=== PATIENT | male | born 1940 | race Caucasian/White ===

== ENCOUNTER 2016-09-14 16:36 | Inpatient (IN) | payer MEDICARE ==
[2016-09-14] VITALS (10 sets, daily range): BP systolic 74–111; BP diastolic 50–105; BMI 28.4
[~2016-09-14] VITALS: Ht 170.2 cm; Wt 84.1 kg
[2016-09-15] VITALS (92 sets, daily range): BP systolic 68–136; BP diastolic 39–104; Ht 170.2 cm; Wt 84.1 kg
--- NOTE | 2016-09-15 00:39 | NUR ---
2145 PT ARRIVED ON UNIT VIA STRETCHER ACCOMPANIED BY MED FLIGHT TEAM. PT TRANSFERED SAFELY TO BED. REPORT RECIEVED FROM MED FLIGHT NURSE. LEVOPHED AT 2.5 ON ARRIVAL TO UNIT. BP HOLDING. STARTED NEW LEVOPHED DRIP AT 2.5 MCG/MIN INTO RIGHT A\C PIV. PT COMPLAINED OF PAIN UPON TOUCH OF BILATERAL LOWER EXTREMETIES. UPON INSPECTION, BOTH THE LEFT AND RIGHT LEGS EDEMETUS FROM BELOW KNEE TO TOES. BRIGHT RED IN COLOR. EXCORIATION AND SCABD ARE ALL OVER THE BILATERAL LOWER EXTREMETIES. SKIN TIGHT AND SHINEY ON LOWER LEGS. STATES PAIN 5/10 ON PAIN SCALE. ABDONEN DISTENDED AND FIRM, NON-TENDER, BOWEL SOUNDS ACTIVE X4 QUADRANTS. HANSEN ALREADY IN PLACE UPON ARRIVAL, APPROX 150ML CONCENTRATED YELLOW URINE IN BAG. LUNG SOUNDS CLEAR IN UPPER LOBES AND DIMINISHED IN LOWER LOBES. RIGHT RADIAL PULSE PALPABLE, LEFT RADIAL PULSE ABSENT, AVF IN LEFT UPPER ARM WITH BRUITT AND THRILL PRESENT, BRUISING CIRCUMFRENCING UPPER ARM FROM AXILLA TO BELOW ELBOW. LEFT HAND PRESENTS WITH WILBUR BANDAGE WRAPPED AROUND IT, PT STATES ITS TO PROTECT HIS HAND. TIPS OF LEFT FINGERS WITH MULTIPLE SORES AND SCABS. 3RD, 4TH, AND 5TH FINGERS WITH NO CAP REFIL RETURN - PALE IN COLOR AND COOL TO TOUCH. 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 STATES WEARS GLASSES BUT DOES NOT HAVE THEM WITH HIM. NO PERSONAL BELINGINGS WERE BROUGHT WITH HIM. PT IS ALERT AND ORIENTED X3, STATED YEAR WAS 2015. PULSES IN FEET DOPPLERED AND PRESENT. TURNED PT TO REMOVE OLD SHEETS FROM UNDERNEATH AND INSPECTED BOTTOM AND BACK WHICH WERE BOTH SMOOTH AND CLEAN, NO REDNESS NOTED. PT ON 4L NC O2, RR EVEN AND SHALLOW BUT UNLABORED AT 18. SPO2 94%. HR 104 BPM, A-FIB WITH RVR. HX OBTAINED FROM PT. BED LOW AND LOCKED, CALL LIGHT IN REACH, VSS, WILL CONTINUE TO MONITOR. 2229 DR CLINE IN ROOM, ASSESSED PT. RECIEVED ORDERS. EXPLAINED THAT FINGERS NOT RECIEVING BLOOD DUE TO FISTULA OVERPOWERING WITH RETURN BLOOD. WILL CONTINUE TO MONITOR. 2314 DAUGHTER IN ROOM, INFORMED ME THAT PT BEEN USING NITRO-BID OINTMENT AROUND HAND AND HAS HELPED WITH CIRCULATION. COMPLETE FULL HX WITH HER PRESENT. VSS ATT, BED LOW AND LOCKED, CALL LIGHT IN REACH, DAUGHTER TO STAY IN TOWN AT [facility]. GAVE PHONE NUMBER AND PASSWORD OBTAINED AND DOCUMENTED. ALL QUESTIONS ANSWERED TO BEST OF ABILITY. WILL CONTINUE TO MONITOR. [address] CLINE OVER PHONE, RECIEVED ORDERS FOR NITRO BID 0.5 INCHES BID, CKP IN AM, CONSULT ORTHO IN AM. WILL ORDER, WILL CONTINUE TO MONITOR.
--- NOTE | 2016-09-15 02:20 | NUR ---
0006-INCREASED LEVOPHED TO 3 MCG/MIN SBP 64. 0009-INCREASED LEVOPHED TO 3.5 MCG/MIN SBP 82 0012-INCREASED LEVOPHED TO 4.0 MCG/MIN SBP 83 0015-INCREASED LEVOPHED TO 4.5 MCG/MIN SBP 73 0020 INCREASED LEVOPHED TO 5.0 MCG/MIN SBP 88 0026-INCREASED LEVOPHED TO 5.5 MCG/MIN SBP 80 0033 INCREASED LEVOPHED TO 6.0 MCG/MIN SBP 82 0038 SBP 89, PT NORMAL 70'S-90'S PER PT DAUGHTER, WILL LEAVE AT 6 AND CONTINUE TO MONITOR. 0044-INCREASED LEVOPHED TO 6.5 MCG/MIN SBP 84 0055 BP 94/60 0010 BP 99/64 0100 PT RESTING, WOKE TO ALLERGY BAND BEING PUT ON WRIST, WINCED IF IN PAIN. ASKED ABOUT HIS PAIN HE STATED ITS "TOLERABLE" WHEN ASKED TO GIVE A NUMBER HE STATED 5/10. BP STABLE AT THIS TIME. SBP 90. BREATHING EVEL AND UNLABORED AND NO S&S OF ACUTE DISTRESS NOTED. BED LOW AND LOCKED, WILL CONTINUE TO MONITOR.
--- NOTE | 2016-09-15 03:00 | NUR ---
REASSESSMENT COMPLETE, PLEASE SEE FLOW SHEETS FOR DETAILS. NO S&S OF ACUTE DISTRESS NOTED. VSS. ASKED FOR BED CURRY, THIS WAS PROVIDED. BED LOW AND LOCKED, CALL LIGHT IN REACH. WILL CONTINUE TO MONITOR.
[2016-09-15 04:52] LABS: BASOPHILS 0.1 % (0.0-2.0); EOSINOPHILS 0 % (0-7); HEMATOCRIT 45.7 % (42.0-54.0); HEMOGLOBIN 14.5 g/dL (13.5-17.5); IMMATURE GRANULOCYTES 2.1 % (0-5); LYMPHOCYTES 3.2 % (15-50); MCH 29.2 pg (26.0-34.0); MCHC 31.7 g/dL (31.0-37.0); MEAN PLATELET VOLUME 10.5 fL (7.4-10.4); MONOCYTES 6.6 % (2-11); PLATELET COUNT 116 10x3/uL (130-400); RBC 4.97 10x6/uL (4.20-6.10); RDW 18.4 % (11.5-14.5); WBC 18.5 10x3/uL (4.8-10.8)
[2016-09-15 05:14] LABS: ALBUMIN 2.8 g/dL (3.4-5.0); ANION GAP 18.6 mmol/L (8-16); BILIRUBIN - DIRECT 1.63 mg/dL (0.00-0.30); BILIRUBIN - INDIRECT 0.57 mg/dL (0.00-1.00); BILIRUBIN - TOTAL 2.2 mg/dL (0.2-1.3); CALCIUM 8.7 mg/dL (8.5-10.1); CARBON DIOXIDE 25.6 mmol/L (21.0-32.0); CREATININE - SERUM 5.2 mg/dL (0.6-1.3); PHOSPHOROUS 6.6 mg/dL (2.5-4.9); POTASSIUM - SERUM 5.2 mmol/L (3.5-5.1); THYROID STIMULATING HORMONE 1.9 uIU/mL (0.36-3.74)
[2016-09-15 05:18] LABS: TROPONIN-I 2.912 ng/mL (0.000-0.060)
[2016-09-15 05:34] LABS: INR 2.76 (0.85-1.17); PROTIME 29.4 SECONDS (11.6-15.0)
--- NOTE | 2016-09-15 07:30 | NUR ---
SHIFT ASSESSMENT VIA FLOWSHEET, SEE FOR DETAILS.
--- NOTE | 2016-09-15 09:10 | NUR ---
PT'S DAUGHTER AT BEDSIDE, UPDATE PROVIDED.
--- NOTE | 2016-09-15 10:20 | NUR ---
REPORT RECIEVED FROM BINU SANDOVAL. CARE ASSUMED. PT RECIEVING DIALYSIS AT THIS TIME. VSS ON LEVOPHED GTT AND CORDARONE GTT. WILL CONT TO MONITOR VS WHILE ON DIALYSIS.
--- NOTE | 2016-09-15 11:00 | NUR ---
RADIAL PULSE OBTAINED USING DOPPLER. HAND COOL TO TOUCH WITH BLUE FINGERTIPS. BRACHIOCEPHALIC FISTULA PRESENT. BRUIT AND THRILL OBTAINED.
--- NOTE | 2016-09-15 12:30 | NUR ---
DR. DASILVA AT BEDSIDE ORDERS RECIEVED.
--- NOTE | 2016-09-15 15:00 | NUR ---
SPOKE WITH SOMEONE FROM DR. MADRIGAL OFFICE IN REGARDS TO ORDERS FOR SURGERY. AWAITING ORDERS.
--- NOTE | 2016-09-15 17:00 | NUR ---
DR. LLOYD AT BEDSIDE. UPDATE PROVIDED TO DAUGHTER.
--- NOTE | 2016-09-15 21:39 | NUR ---
1900 REPORT RECIEVED, INITIAL ASSESSMENT COMPLETE, PLEASE SEE FLOW SHEETS FOR DETAILS. SITTING UP IN BED BUT SLEEPING. ABLE TO WAKE TO VOICE. FOLLOWS COMMANDS AND A&O X3. COMPLAINS OF PAIN IN LEGS. BED LOW AND LOCKED, CALL LIGHT IN REACH. DENIES NEEDS ATT, VSS, WILL CONTINUE TO MONITOR. 2100 FAMILY IN ROOM, ANSWERED ALL QUESTIONS TO BEST OF ABILITY. NO OTHER QUESTIONS ATT. VSS, WILL CONTINUE TO MONITOR.
--- NOTE | 2016-09-15 21:41 | NUR ---
PT REQUESTING PAIN MEDS, WILL SEE EMAR AND GIVE ORDERED IF HE HAS ANY. PLEASE SEE EMAR FOR DETAILS.
--- NOTE | 2016-09-15 21:51 | NUR ---
1944 SBP 68, STARTED LEVOPHED AT 1 MCG/MIN. 1999 SBP 73, INCREASED LEVOPHED TO 2MCG/MIN. 2014 SBP 76, INCREASED LEVOPHED TO 3 MCG/MIN. 2029 SBP 93-WILL CONTINUE TO MONITOR.
--- NOTE | 2016-09-15 22:02 | NUR ---
SBP 74 INCREASED LEVOPHED TO 3.5
--- NOTE | 2016-09-15 22:12 | NUR ---
BP 83/49 WITH MAP OF 62, WILL LEAVE LEVOPHED AT 3.5 AND CONTINUE TO MONITOR.
--- NOTE | 2016-09-15 23:00 | NUR ---
REASSESSMENT COMPLETE, PLEASE SEE FLOW SHEETS FOR DETAILS. VSS ATT, BED LOW AND LOCKED, CALL LIGHT IN REACH, WILL CONTINUE TO MONITOR.
[2016-09-16] VITALS (92 sets, daily range): BP systolic 64–143; BP diastolic 31–114
--- NOTE | 2016-09-16 01:00 | NUR ---
PT SLEEPING, NO S&S OF ACUTE DISTRESS NOTED. VSS ATT, BED LOW AND LOCKED, CALL LIGHT IN REACH. WILL CONTINUE TO MONITOR.
--- NOTE | 2016-09-16 03:00 | NUR ---
REASSESSMENT COMPLETE, PLEASE SEE FLOW SHEETS FOR DETAILS. STATES PAIN BARABLE AT 4/10, HAS BEEN RESTING COMFORTABLY. DENIES ANY NEEDS AT THIS TIME. BED LOW AND LOCKED, CALL LIGHT IN REACH. VSS, WILL CONTINUE TO MONITOR.
--- NOTE | 2016-09-16 03:30 | NUR ---
MAP BELOW 60 FOR 30 MINUTIES, INCREASED LEVOPHED TO 4 MCG/MIN.
--- NOTE | 2016-09-16 05:00 | NUR ---
RESTING, NO S&S OF ACUTE DISTRESS NOTED. RR EVEN AND UNLABORED, VSS ATT, BED LOW AND LOCKED, CALL LIGHT IN REACH. WILL CONTINUE TO MONITOR.
[2016-09-16 05:17] LABS: HEMATOCRIT 45.5 % (42.0-54.0); HEMOGLOBIN 14.2 g/dL (13.5-17.5); MCH 28.9 pg (26.0-34.0); MCHC 31.2 g/dL (31.0-37.0); MCV 92.7 fL (80.0-100.0); MEAN PLATELET VOLUME 10.6 fL (7.4-10.4); PLATELET COUNT 132 10x3/uL (130-400); RBC 4.91 10x6/uL (4.20-6.10); RDW 18.5 % (11.5-14.5); WBC 22.7 10x3/uL (4.8-10.8)
[2016-09-16 05:32] LABS: ANION GAP 18.2 mmol/L (8-16); CALCIUM 8.9 mg/dL (8.5-10.1); CARBON DIOXIDE 25.8 mmol/L (21.0-32.0); CREATININE - SERUM 4.9 mg/dL (0.6-1.3); MAGNESIUM - SERUM 1.9 mg/dL (1.8-2.4); PHOSPHOROUS 7.7 mg/dL (2.5-4.9)
[2016-09-16 05:33] LABS: INR 3.92 (0.85-1.17); PROTIME 38.9 SECONDS (11.6-15.0)
[2016-09-16 05:44] LABS: VANCOMYCIN - RANDOM 14.1 ug/mL (10.0-20.0)
[2016-09-16 06:05] LABS: LYMPHOCYTES 2 % (15-50); NEUTROPHILS 83 % (40-80); PLATELET ESTIMATE NORMAL
--- NOTE | 2016-09-16 06:10 | NUR ---
FULL BED BATH AND LINEN CHANGE PROVIDED. PT MOVED SELF. BED LOW AND LOCKED, CALL LIGHT IN REACH. VSS, WILL CONTINUE TO MONITOR.
--- NOTE | 2016-09-16 07:15 | NUR ---
REC'D REPORT AND RESUMED CARE, ASSESSMENT COMPLETE PER FLOWSHEET, VSS, LEVAPHED IN USE AT 4 MCG, WILLCONTINUE WITH POC
--- NOTE | 2016-09-16 09:00 | NUR ---
AM MEDS GIVEN WITHOUT DIFFICULTY, DAUGHTER AT BEDSIDE, STATUS UPDATE GIVEN, AWAITING TO SPEAK WITH DOCTORS, NO OTHER NEEDS AT THIS TIME
--- NOTE | 2016-09-16 11:00 | NUR ---
RESTING WITH NO SIGNS, ASSESSMENT COMPLETE PER FLOWSHEET, NO NEEDS AT THIS TIME
--- NOTE | 2016-09-16 11:39 | NUR ---
Is the patient Alert and Oriented? Yes 0 * How many steps to enter\exit or inside your home? RAMP 0 * PCP DR ROSALIND BLOOM IN [place], [place] 0 * Pharmacy [facility] 0 * Preadmission Environment Home with Family 0 * ADLs Independent 0 * Equipment Rolling Walker 0 * List name and contact numbers for known caregivers / representatives who currently or will assist patient after discharge: DAUGHTER: ANNELISE [phone] * Community resources currently utilized None 0 * Additional services required to return to the preadmission environment? No 0 * Can the patient safely return to the preadmission environment? Yes 0 * Has this patient been hospitalized within the prior 30 days at any hospital? No PATIENT IS AWAKE AND ALERT. HE STATES HE LIVES AT HOME WITH HIS , GRIS. SHE DOES NOT DRIVE AND HIS DAUGHTER, ANNELISE WILL BE AVAILABLE TO DRIVE HIM HOME AT DISCHARGE.HIS PCP IS DR. ROSALIND BLOOM IN [place], [place]. HE GETS HIS MEDS FROM [facility] IN [place]. PATIENT STATES HE USES A WALKER AT HOME. HE HAD HOME HEALTH IN THE PAST BUT DOES NOT RECALL THE NAME OF THE AGENCY. HE STATES HE HAS A RAMP TO ENTER HIS HOME. HE PLANS TO RETURN HOME WITH FAMILY AT DISCHARGE.
--- NOTE | 2016-09-16 15:00 | NUR ---
ASSESSMENT COMPLETE, NO ACUTE CHANGE FROM PREVIOUS, VSS, DENIES PAIN, REPOSITIONED UP AND TO RIGHT WITH HEELS FLOATED, DAUGHTER AT BEDSIDE, UPDATE GIVEN, NO NEEDS AT THIS TIME
--- NOTE | 2016-09-16 16:42 | NUR ---
IV access-20 gauge accucath in right forearm. Juju Cooper RN
--- NOTE | 2016-09-16 18:30 | NUR ---
TO CT WITH VOICE PROFESSOR X2, AWAKE AND CONFUSED, LEVAPHED INFUSING AT 6 MCG AND DOBUTAMINE AT 7 MCG. VSS
--- NOTE | 2016-09-16 19:00 | NUR ---
REPORT RECIEVED, PT AWAY FOR PROCEDURE ATT. WILL AWAIT RETURN.
--- NOTE | 2016-09-16 19:20 | NUR ---
PT RETURNED FROM PROCEDURE, INITIAL ASSESSMENT COMPLETE. MOVED PT UP IN BED. STATED HE IS FEELING WELL TODAY. PT IS A&O X3, COULD NOT STATE [place] CURRENTLY IN. VSS, LOWER EXTREMETIES AND LEFT RADIAL PULSES DOPPLERED AND PRESENT. LEFT HAND IS PURPLE IN COLOR AND COLD TO TOUCH. PT PRESENTS WITH IV INFUSING DOBUTAMINE AT 7, CODARONE AT 17, AND LEVOPHED AT 7 ALL INTO RIGHT AC PIV. BED LOW AND LOCKED, CALL LIGHT IN REACH. WILL CONTINUE TO MONITOR.
--- NOTE | 2016-09-16 19:25 | NUR ---
CORRECTION TO OTHER NOTE AT 1920, IV FLUIDS UPON RETURN ARE FOLLOWS: LEVOPHED AT 3MCG/MIN, CODARONE AT 17ML/HR, AND DOBUTAMINE AT 10MCG/KG/MIN.
--- NOTE | 2016-09-16 20:34 | NUR ---
LEVOPHED INCREASED TO 3.5, MAP 57. FIVE MINUTIES LATER, MAT 73. WILL CONTINUE TO MONITOR.
--- NOTE | 2016-09-16 21:00 | NUR ---
PT RESTING COMFORTABLE. DENIES PAIN/NEEDS ATT. VSS, BED LOW AND LOCKED, CALL LIGHT IN REACH, WILL CONTINUE TO MONITOR.
--- NOTE | 2016-09-16 23:00 | NUR ---
REASSESSMENT COMPLETE, PLEASE SEE FLOW SHEETS FOR DETAILS. WAS SLEEPING, EASILY AROUSED, DENIES PAIN/NEEDS ATT. VSS, BED LOW AND LOCKED, CALL LIGHT IN REACH. WILL CONTINUE TO MONITOR.
[2016-09-17] VITALS (91 sets, daily range): BP systolic 66–148; BP diastolic 39–107
--- NOTE | 2016-09-17 00:09 | NUR ---
MAP 51, INCREASED LEVOPHED TO 4 MCG/MIN.
--- NOTE | 2016-09-17 01:00 | NUR ---
RESTING, NO S&S OF ACUTE DISTRESS NOTED. VSS, BED LOW AND LOCKED, CALL LIGHT IN REACH. HANSEN CARE PROVIDED. WILL CONTINUE TO MONITOR.
--- NOTE | 2016-09-17 03:00 | NUR ---
REASSESSMENT COMPLETE, PLEASE SEE FLOW SHEETS FOR DETAILS. VSS ATT, BED LOW AND LOCKED, CALL LIGHT IN REACH. WILL CONTINUE TO MONITOR.
[2016-09-17 04:42] LABS: BASOPHILS 0.1 % (0.0-2.0); EOSINOPHILS 0 % (0-7); HEMATOCRIT 40.6 % (42.0-54.0); HEMOGLOBIN 12.9 g/dL (13.5-17.5); IMMATURE GRANULOCYTES 0.4 % (0-5); LYMPHOCYTES 1.4 % (15-50); MCH 28.9 pg (26.0-34.0); MCHC 31.8 g/dL (31.0-37.0); MEAN PLATELET VOLUME 10.9 fL (7.4-10.4); MONOCYTES 5.2 % (2-11); NEUTROPHILS 92.9 % (40-80); PLATELET COUNT 107 10x3/uL (130-400); RBC 4.46 10x6/uL (4.20-6.10); RDW 18.3 % (11.5-14.5)
[2016-09-17 04:46] LABS: WBC 13.8 10x3/uL (4.8-10.8)
[2016-09-17 04:58] LABS: CALCIUM 7.2 mg/dL (8.5-10.1); CARBON DIOXIDE 25.2 mmol/L (21.0-32.0); PHOSPHOROUS 8.9 mg/dL (2.5-4.9); POTASSIUM - SERUM 5.2 mmol/L (3.5-5.1)
--- NOTE | 2016-09-17 05:00 | NUR ---
PT RESTING, VSS, BED LOW AND LOCKED, CALL LIGHT IN REACH. RR EVEN AND UNLABORED. NO S&S OF ACUTE DISTRESS NOTED. CVL DRESSING CHANGE PROVIDED USING STERILE TECHNIQUE. GAVE MEDS, WITH WATER. PT DENIES ANY OTHER NEEDS ATT. WILL CONTINUE TO MONITOR.
--- NOTE | 2016-09-17 07:00 | NUR ---
REC'D REPORT AND RESUMED CARE, SLEEPING, AROUSABLE TO VERBAL STIMULI, CONFUSED WITH GARBLED SPEECH, ASSESSMENT COMPLETE PER FLOWSHEET
--- NOTE | 2016-09-17 09:00 | NUR ---
AM MEDS GIVEN PER MAR FLOWSHEET AND ORDERS
--- NOTE | 2016-09-17 11:00 | NUR ---
RESTING WITH NO SIGNS OF DISTRESS, CONTINUES ON DOBUATMINE AT 18 MCG AND LEVAPHED AT 10 MCG, CONFUSED WITH GARBLED SPEECH NO OTHER CHANGES FROM PREVIOUS ASSESSMENT
--- NOTE | 2016-09-17 11:40 | NUR ---
LUNCH TRAY TO BEDSIDE, ASSIST WITH SET UP AND EATING, BITES AND SIPS ONLY, WITH COACHING, TRAY FROM BEDSIDE
--- NOTE | 2016-09-17 13:30 | NUR ---
DR LLOYD HERE FOR EVAL, PHONE CALL TO WITH STATUS UPDATE, DECISION MADE TO CHANGE CODE TO DNR, WITNESS BY AYLIN HORTON RN, NO OTHER NEEDS AT THIS TIME
--- NOTE | 2016-09-17 13:45 | NUR ---
SPOKE WITH DAUGHTER ANNELISE, SHE IS POA AND SHE HAS DISCUSSED CODE STATUS WITH MOM AND AGREES WITH REPORT OF POOR PROGNOSIS AND TO HAVE PATIENT CODE STATUS CHANGED TO DNR
--- NOTE | 2016-09-17 19:00 | NUR ---
PT CONFUSED AND DISORIENTED. GARBLED SPEECH. ABLE TO FOLLOW SOME SIMPLE COMMANDS. BRUISING AND SORES NOTED TO BIALTERAL ARMS. 2+ PITTING EDEMA TO LOWER EXTREMITIES. LOWER EXTREMITIES PROPPED ON PILLOWS. PT REPOSITIONED FOR COMFORT. ORAL CARE PROVIDED. LEVOPHED AND DOBUTAMINE INFUSING AT THIS TIME. NO C/O PAIN. BED ALARM ON. HD AT BEDSIDE. CPOC.
--- NOTE | 2016-09-17 21:00 | NUR ---
HD AT BEDSIDE. DAUGHTER AT BEDSIDE, UPDATE GIVEN AND QUESTIONS ANSWERED. LEVOPHED AND DOBUTAMINE INFUSING FOR PRESSURE SUPPORT. PT REMAINS CONFUSED. BED ALARM ON. CPOC.
--- NOTE | 2016-09-17 22:41 | NUR ---
Mr. Petersen had bedside hemodialysis today via his right chest hemosplit from 1930 until 2229. Average blood flow was 400 mls/minute. Net fluid removed was 2000 mls. Pt. remained very confused during treatment and the levoplhed had to be increased a litlle to support his b/p. Post vital signs were: B/P::93, Temp:97.4, Resps:18.
--- NOTE | 2016-09-17 23:00 | NUR ---
PT BECOMING INCREASINGLY AGITATED AND VERBALLY DISRUPTIVE. CONFUSED/DISORIENTED. MARLYN PAGED.
--- NOTE | 2016-09-17 23:10 | NUR ---
REC'D CALLBACK FROM GLORY CLINE REC'D.
[2016-09-18] VITALS (93 sets, daily range): BP systolic 70–148; BP diastolic 49–131
--- NOTE | 2016-09-18 | NUR ---
PT COMBATIVE AND VERBALLY DISRUPTIVE. ATTEMPTS TO REORIENT ARE UNSUCCESSFUL. DAUGHTER UPDATED.
--- NOTE | 2016-09-18 00:34 | NUR ---
DAUGHTER AT BEDSIDE.
[2016-09-18 04:45] LABS: BASOPHILS 0.2 % (0.0-2.0); EOSINOPHILS 0 % (0-7); HEMATOCRIT 37.4 % (42.0-54.0); IMMATURE GRANULOCYTES 0.5 % (0-5); LYMPHOCYTES 2.3 % (15-50); MCH 28.7 pg (26.0-34.0); MCHC 32.1 g/dL (31.0-37.0); MCV 89.5 fL (80.0-100.0); MEAN PLATELET VOLUME 11.3 fL (7.4-10.4); MONOCYTES 6.4 % (2-11); NEUTROPHILS 90.6 % (40-80); RBC 4.18 10x6/uL (4.20-6.10); RDW 17.9 % (11.5-14.5); WBC 12.7 10x3/uL (4.8-10.8)
[2016-09-18 05:06] LABS: PLATELET COUNT 85 10x3/uL (130-400)
[2016-09-18 05:14] LABS: APTT 62.2 SECONDS (22.8-39.4)
[2016-09-18 05:15] LABS: INR 11.39 (0.85-1.17); PROTIME 91.3 SECONDS (11.6-15.0)
[2016-09-18 05:22] LABS: ALBUMIN 2.2 g/dL (3.4-5.0); ANION GAP 22.9 mmol/L (8-16); CARBON DIOXIDE 21.5 mmol/L (21.0-32.0); CREATININE - SERUM 4.6 mg/dL (0.6-1.3); MAGNESIUM - SERUM 1.9 mg/dL (1.8-2.4); PHOSPHOROUS 5.7 mg/dL (2.5-4.9); POTASSIUM - SERUM 4.4 mmol/L (3.5-5.1)
[2016-09-18 06:50] LABS: APTT 73.7 SECONDS (22.8-39.4)
[2016-09-18 06:54] LABS: INR 11.3 (0.85-1.17); PROTIME 90.7 SECONDS (11.6-15.0)
--- NOTE | 2016-09-18 07:00 | NUR ---
PREMA PAGED REGARDING CRITICAL LAB RESULTS
--- NOTE | 2016-09-18 07:15 | NUR ---
REC'D REPORT AND RESUMED CARE, RESTLESS AND AGITATED, NOT EASILY REDIRECTED, PICKING AND PULLING AT HANSEN, IV SITE, AND SORES ON LEFT HAND SAY THAT HE NEEDS TO GET THE GARCIA OFF, CONFUSED, ANSWERS TO NAME ONLY, ASSESSMENT COMPLETE PER FLOWSHEET, REPOSITIONED UP AND TO BACK WITH HEELS FLOATED
[2016-09-18 07:42] LABS: PLATELET ESTIMATE DECREASED
[2016-09-18 08:42] LABS: ALBUMIN 2.3 g/dL (3.4-5.0); BILIRUBIN - DIRECT 1.07 mg/dL (0.00-0.30); BILIRUBIN - INDIRECT 0.37 mg/dL (0.00-1.00); BILIRUBIN - TOTAL 1.44 mg/dL (0.2-1.3)
--- NOTE | 2016-09-18 09:00 | NUR ---
AM DOSE OF LOVENOX HELD, PTT 90,[address]LOYD, DAUGHTER AT BEDSIDE, ATTMEPT TO FEED BREAKFAST, BITES AND SIPS ONLY
--- NOTE | 2016-09-18 09:25 | NUR ---
Nutrition follow-up: Pt is now assessed with severe malnutrition of acute illness R/T hypotension AEB < 50% intake of estimated energy needs for > 7 days; noted severe fluid retention with 4+ edema; noted reduced records management assistant strength. PO intake is still only ~10% of meals Labs reviewed Pt continues with Levophed - unable to wean at this time Wt: 180# If medically feasible, nutrition support should begin. NGT with Nepro @ 20 ml/hr with gradual increase to goal rate of 45 ml/hr. RDN following.
--- NOTE | 2016-09-18 10:14 | NUR ---
CONSENT FOR BLOOD SIGNED BY DAUGHTER, ANNELISE WHO IS POA
--- NOTE | 2016-09-18 10:22 | NUR ---
25 MG BENADRYL AND 1 MG DILAUDID, GIVEN PER MAR ORDER FOR PAIN AND RESTLESSNESS
[2016-09-18] MEDS ORDERED: CYCLOBENZAPRINE10 MG PO (11:07)
[2016-09-18] MEDS ORDERED: ARISTOCORT 0.5%15 GM TOPICAL (11:08)
[2016-09-18] MEDS ORDERED: DIOVAN40 MG PO (11:10)
[2016-09-18] MEDS ORDERED: PREDNISONE10 MG PO (11:11)
[2016-09-18] MEDS ORDERED: PLAVIX75 MG PO (11:12)
[2016-09-18] MEDS ORDERED: LASIX40 MG PO (11:14)
[2016-09-18] MEDS ORDERED: ZYLOPRIM100 MG PO (11:16)
[2016-09-18] MEDS ORDERED: PERCOCET 10/3251 TA1 PO (11:17)
[2016-09-18] MEDS ORDERED: NITRO-BID60 GM TP (11:19)
[2016-09-18] MEDS ORDERED: AMBIEN CR 6.26.25 MG PO (11:20)
[2016-09-18] MEDS ORDERED: PROTONIX40 MG PO (11:22)
[2016-09-18] MEDS ORDERED: SYNTHROID150 MCG PO (11:23)
[2016-09-18] MEDS ORDERED: GABAPENTIN100 MG PO (11:25)
[2016-09-18] MEDS ORDERED: JANTOVEN5 MG PO (11:27)
--- NOTE | 2016-09-18 11:55 | NUR ---
FFP INITIATED PER ORDER AT 200 CC/HR, VSS, SLEEPIN WITH NO SIGNS OF DISTRESS
--- NOTE | 2016-09-18 11:55 | NUR ---
UNIT # 1 FFP INFUSION BEGAN, VSS, SLEEPING WITH NO SIGNS OF DISTRESS
--- NOTE | 2016-09-18 13:00 | NUR ---
DR LLOYD HERE FOR EVAL, SPOKE WITH OVER THE PHONE WITH STATUS UPDATE, NEW ORDERS GIVEN
[2016-09-18 13:29] LABS: D-DIMER-QUANTITATIVE 0.59 ug/mLFEU (0.20-0.54)
--- NOTE | 2016-09-18 13:30 | NUR ---
UNIT #1 FFP COMPLETED AND UNIT # 2 FFP INFFUSION BEGAN, VSS, PT. SLEEPING WITH NO SIGNS OF DISTRESS
--- NOTE | 2016-09-18 15:00 | NUR ---
SLEEPING WITH NOSIGNS OF DISTRESS, VSS, CONTINUE ON DOBUTAMINE @ 15 MCG AND CORDARONE .5 MCG, NO ACUTE CHANGE FROM PREVIOUS
--- NOTE | 2016-09-18 18:00 | NUR ---
AWAKE AND RESTLESS, PULLING HANSEN, STATES IT HURTS, TYRONE DC'D, INCONTINENT OF STOOL, BATH, SKINCARE AND LINEN CHANGE COMPLETED
--- NOTE | 2016-09-18 18:15 | NUR ---
DAUGHTER ANNELISE AT BEDSIDE STATUS UPDATED, JELLO, APPLESAUCE AND JUICE TO BEDSIDE
--- NOTE | 2016-09-18 18:35 | NUR ---
NOTIFIED DR LLOYD RE: FIBRINOGEN AND DDIMER RESULTS, NO INTERVENTION AT THIS TIME
--- NOTE | 2016-09-18 19:00 | NUR ---
1900: Pt rec'd resting flat in bed with eyes closed. Pt startles to verbal stimuli and tremors in bilateral upper extrem. Pt moves x4 extrem vs gravity, but does not follow commands. Pt is confused not oriented to place or situiation. All attempts to reorient pt unsuccessful. Pt breathing room air with RR 22-24x with SPO2 96%. Pt unable/does not keep SPO2 monitor on. Pulls at aggressively when placed. S1S2 irregular SR with PVC seen on CM. Left Arm AVF site black/purple in color extending distally to wrist. Area is swollen and weeping. Unable to palpate distal radial pulse. Pt hands covered with dry, cracked, bleeding skin. Pt's left leg in similar state dark red in color and unable to obtain distal pulses. Skin is also cracked with areas of open skin, oozing, some scabs noted. ABD soft to palpation. No anglin, No urine output at this time. End of penis is red and inlammed. Bed in lowest position, bed alarm on and audile, SR up x3, call light in reach, attempted to reposition for comfort, and reassure patient.
--- NOTE | 2016-09-18 19:30 | NUR ---
1930: Pt Dobutamine 18 mcg/kg/min. Continue to titrate (decrease) as per orders.
--- NOTE | 2016-09-18 20:00 | NUR ---
2000: Pt confused and occasionally "swats" at staff with arms. Pt does not want staff to touch him. Verbal calming done and pt calmed, but still will not allow SPo2 monitor.
--- NOTE | 2016-09-18 21:00 | NUR ---
2100: Family called and update provided at this time.
--- NOTE | 2016-09-18 21:30 | NUR ---
2129: Attempted to give PO medication. Pt spits continullay. notifed and Plavix held at this time.
--- NOTE | 2016-09-18 22:30 | NUR ---
2230: Pt moved to room 2303 for more visible observation from room 2302.
--- NOTE | 2016-09-18 23:00 | NUR ---
2300: Pt with occasional yelling out from room. Pt remains confused not oriented to place or time. All attempts to reorient pt are unsuccessful.
[2016-09-19] VITALS (76 sets, daily range): BP systolic 68–149; BP diastolic 38–105
--- NOTE | 2016-09-19 02:30 | NUR ---
0230: Pt with small BM. Complete bath and linen change done at this time. Pt pulls vs staff and "swats" occasionally at staff during bath. Pt remains confused and unable to reorient. Continue to titrate Dobutamine gtt. Pt remains SR with PVCs seen on CM 70's. Remains RA and spot check of SPO2 96%. Pt seems to be tactilly sensitive pulling aggressively at lines when they touch right hand. Pt does not follow commands. Lines covered and moved. Left Arm and Leg as per previous assessment.
--- NOTE | 2016-09-19 05:00 | NUR ---
0500: Pt with BM. Linen changed and pt repositioned for comfort. Pt continues "swatting" at staff. Attempted to kick staff. Verbal reorientation unsuccessful.
[2016-09-19 05:39] LABS: BASOPHILS 0.1 % (0.0-2.0); EOSINOPHILS 0 % (0-7); HEMATOCRIT 35.4 % (42.0-54.0); HEMOGLOBIN 11.8 g/dL (13.5-17.5); IMMATURE GRANULOCYTES 0.9 % (0-5); LYMPHOCYTES 5.2 % (15-50); MCH 29.1 pg (26.0-34.0); MCHC 33.3 g/dL (31.0-37.0); MEAN PLATELET VOLUME 11.3 fL (7.4-10.4); MONOCYTES 5.6 % (2-11); NEUTROPHILS 88.2 % (40-80); PLATELET COUNT 69 10x3/uL (130-400); RBC 4.06 10x6/uL (4.20-6.10); WBC 9.7 10x3/uL (4.8-10.8)
[2016-09-19 05:41] LABS: MCV 87.2 fL (80.0-100.0)
[2016-09-19 05:50] LABS: CALCIUM 8.1 mg/dL (8.5-10.1); CARBON DIOXIDE 21.4 mmol/L (21.0-32.0); CREATININE - SERUM 5.6 mg/dL (0.6-1.3)
[2016-09-19 05:53] LABS: ANION GAP 22.8 mmol/L (8-16); PHOSPHOROUS 7.5 mg/dL (2.5-4.9); POTASSIUM - SERUM 5.2 mmol/L (3.5-5.1)
[2016-09-19 05:55] LABS: INR 8.26 (0.85-1.17); PROTIME 70.6 SECONDS (11.6-15.0)
--- NOTE | 2016-09-19 06:00 | NUR ---
0600: Attempted to give PO meds. Pt swatting at staff and spits with any attempt. All attempts to reorient pt unsuccessful.
--- NOTE | 2016-09-19 08:08 | NUR ---
PT NOTED PULLING AT LINES. PT ABOUT TO BEGIN DIALYSIS, DIALYSIS NURSE IN ROOM SETTING UP DIALYSIS MACHIENE TO BEGIN DIALYSIS. FOR SAFETY BILATERAL SOFT WRIST RESTRAINS PLACED PER ORDERS AT THIS TIME. WILL BE DC AFTER COMPLETION OF DIALYSIS. WILL CONTINUE TO OBSERVE.
--- NOTE | 2016-09-19 09:49 | NUR ---
RECIEVING DIALYSIS AT THIS TIME. NO ACUTE DISTRESS NOTED. NOTED PT TO HAVE A FEW EPISODES OF YELLING OUT. PT DAUGHTER, ROSSY, IS AT BEDSIDE VISITING WITH PT TO HELP KEEP PT CALM. NO ACUTE DISTRESS NOTED. WILL CONTINUE PLAN FO CARE.
--- NOTE | 2016-09-19 10:34 | NUR ---
NO ACUTE DISTRESS NOTED. VSS. FAMILY AT BEDSIDE. WILL CONTINUE PLAN FO CARE.
--- NOTE | 2016-09-19 11:50 | NUR ---
STILL RECIEVING DIALYSIS AT THIS TIME. NO ACUTE DISTRESS NOTED. PT STILL HAVING CONFUSION, REORIENTATION FREQUENTLY PROVIDED. FAMILY AT BEDSIDE. NO ACUTE DISTRESS NOTED. WILL CONTINUE PLAN OF CARE.
--- NOTE | 2016-09-19 12:23 | NUR ---
Mr. Petersen had bedside hemodialysis today via his right chest hemosplit from 09 until 121. Average blood flow was 400 mls/minute. Used zero heparin other than the catheter indwelling heparin which was the exact length of the lumens. Used normal saline 100mls/hr infusing via the venous trap of the dialysis machine to reduce clotting issues. I removed the volume from the normal saline given as well as a net of 3000 mls. Post vital signs were: B/P:114/78, HR:78, Temp:96.6, Resps:18.
--- NOTE | 2016-09-19 13:14 | NUR ---
TOTAL BED CHANGE PROVIDED AT THIS TIME VIA TOTAL ASSIST X 2 PERSON. NOTED PT TO HAVE WEEPING EDEMA +2 TO LEFT ARM. ALSO NOTED AT THIS TIME SMALL INCONTINENT BOWEL MOVEMENT. BEREKET CARE AND HANSEN CARE PROVIDED VIA TOTAL X 2 ASSIST. NO ACUTE DISTRESS NOTED. WILL CONTINUE PLAN OF CARE.
--- NOTE | 2016-09-19 13:53 | NUR ---
DR LLOYD ROUNDING ON PT AT THIS TIME, NOTED HE ASKED THIS NURSE TO CONTACT PT TO GIVE UPDATE, CALLED AND DID NOT RECIEVE ANSWER. CALLED PT DAUGHTER, RECIEVED ANSWER. DR LLOYD SPEAKING WITH PT DAUGHTER WITH AT THIS TIME GIVING UPDATE. NO ACUTE DISTRESS NOTED WITH PT. WILL CONTINUE PLAN FO CARE.
--- NOTE | 2016-09-19 14:03 | NUR ---
PT CALLED BACK AT THIS TIME. DR LLOYD GIVEN UPDATE. NO ACUTE DISTRESS NOTED. WILL CONTINUE PLAN OF CARE.
--- NOTE | 2016-09-19 15:21 | NUR ---
LYING IN BED AWAKE AT THIS TIME. NO ACUTE DISTRESS NOTED. PT STILL HAVING CONFUSION, UNABLE TO REORIENTATE AFTER MULTIPLE REORIENTATING PROVIDED. PT STILL TWITCHING TO ALL EXTREMITIES AND STILL MOVING ALL EXTREMITIES. WILL CONTINUE TO OBSERVE.
--- NOTE | 2016-09-19 17:18 | NUR ---
IN BED RESTING AT THIS TIME. RESPIRATIONS AT STEADY AND UNLABORED RATE. NO ACUTE DISTRESS NOTED. WILL CONTINUE PLAN OF CARE.
--- NOTE | 2016-09-19 19:00 | NUR ---
1900: Pt rec'd resting flat in bed with eyes closed. Pt startles to verbal stimuli and tremors in bilateral upper extrem. Pt moves x4 extrem vs gravity, but does not follow commands. Pt is confused not oriented to place or situiation. Verbal reorientation successful for short periods of time. Pt breathing room air with RR 22-24x with SPO2 92%. Pt unable/does not keep SPO2 monitor on. Pulls at aggressively when placed. S1S2 irregular SR with PVC seen on CM. Left Arm AVF site black/purple in color extending distally to wrist. Area is swollen and weeping. Left Hand is bruised and has multiple open areas and scabs. Unable to palpate distal radial pulses. Hand is cold to touch. Pt's left leg in similar state dark red in color extending from knee to foot. Difficult to obtain distal pulses via doppler, but is not as cold as hand. Skin is also cracked with areas of open skin, oozing, some scabs noted. Left lower extrem with disolored area extending from knee to foot that is red in color and has small scabbed area. Distal dorsalis pedis obtainable via doppler. ABD soft to palpation. No anglin, No urine output at this time. End of penis is red and inflammed at meatus. Bed in lowest position, bed alarm on and audile, SR up x3, call light in reach, attempted to reposition for comfort, and reassure patient.
--- NOTE | 2016-09-19 22:30 | NUR ---
2230: Pt lethargic this evening; arousable to voice, and answers most questions. Pt remains confused; not oriented to place or time. Pt returns to resting with eyes closed with no stimulation. Dobutamine gtt off. Amiodarone gtt remains.
[2016-09-20] VITALS (24 sets, daily range): BP systolic 95–139; BP diastolic 57–78
--- NOTE | 2016-09-20 | NUR ---
0000: Pt remains lethargic, but arouses to voice stimuli. Pt remains confused; not oriented to time or place. Pt repositioned for comfort at this time. Pt remains SR with occasional PVCs seen on CM.
--- NOTE | 2016-09-20 04:30 | NUR ---
0430: Lab draw done at this time. Pt remains lethargic.
[2016-09-20 04:47] LABS: BASOPHILS 0.2 % (0.0-2.0); EOSINOPHILS 0 % (0-7); HEMATOCRIT 40.1 % (42.0-54.0); HEMOGLOBIN 13.2 g/dL (13.5-17.5); IMMATURE GRANULOCYTES 1.6 % (0-5); LYMPHOCYTES 4.2 % (15-50); MCH 28.9 pg (26.0-34.0); MCHC 32.9 g/dL (31.0-37.0); MCV 87.9 fL (80.0-100.0); MONOCYTES 8.4 % (2-11); NEUTROPHILS 85.6 % (40-80); PLATELET COUNT 68 10x3/uL (130-400); RBC 4.56 10x6/uL (4.20-6.10); RDW 18.3 % (11.5-14.5); WBC 6.4 10x3/uL (4.8-10.8)
[2016-09-20 04:57] LABS: APTT 66.4 SECONDS (22.8-39.4)
[2016-09-20 04:59] LABS: INR 6.31 (0.85-1.17); PROTIME 56.9 SECONDS (11.6-15.0)
[2016-09-20 05:13] LABS: ALBUMIN 2.4 g/dL (3.4-5.0); ANION GAP 21.5 mmol/L (8-16); BILIRUBIN - TOTAL 1.61 mg/dL (0.2-1.3); CALCIUM 8.1 mg/dL (8.5-10.1); CREATININE - SERUM 4.6 mg/dL (0.6-1.3); MAGNESIUM - SERUM 2.3 mg/dL (1.8-2.4); PHOSPHOROUS 6.7 mg/dL (2.5-4.9); POTASSIUM - SERUM 4.5 mmol/L (3.5-5.1); PROTEIN - SERUM 6.3 g/dL (6.4-8.2); VANCOMYCIN - RANDOM 26.2 ug/mL (10.0-20.0)
--- NOTE | 2016-09-20 06:00 | NUR ---
0600: Pt remains lethargic, but arouses to voice and is confused to time and place. Verbal reorientation unsuccessful at this time. Pt remains SR 78 bpm at this time with SBP 120-130. Dobutamine remains off. Amiodarone remains at 0.5 mg/min. No change in CV assessment.
--- NOTE | 2016-09-20 08:05 | NUR ---
LYING IN BED RESTING AT THIS TIME. NO ACUTE DISTRESS NOTED. PT CONFUSED, REORIENTATION PROVIDED. WILL CONTINUE PLAN OF CARE.
--- NOTE | 2016-09-20 12:02 | NUR ---
SPOKE WITH PT DAUGHTER WHO HAS MADE THE DECISION ALONG WITH PTS FOR PT TO BE PLACED ON HOSPICE. SHE ALSO STATED SHE WISHES FOR PT TO BE TRANSFERRED TO THE [facility]OSP[facility] AT THEIR TOWN, [facility], PHONE NUMBER [phone]. DR LLOYD HAS ALREADY SPOKE WITH PTS DAUGHTER AND PTS ABOUT A DECISION FOR HOSPICE. CALLED DR LLOYD TO NOTIFY OF PTS FAMILY REQUEST. ORDER PLACED FOR HOSPICE CONSULT. WILL CALL AND NOTIFY CASE MANAGEMENT AT THIS TIME. WILL CONTINUE PLAN OF CARE.
--- NOTE | 2016-09-20 12:31 | NUR ---
SPOKE WITH OUR CASE MANAGEMENT, NOTED SHE STATED FOR THIS NURSE TO CONTACT [facility] TO GATHER MORE INFORMATION ABOUT GENERAL INPATIENT STATUS. SPOKE WITH THEIR CASE MANAGEMENT, LORI AT [phone] AND SHE STATED THAT SHE WOULD FIND MORE INFORMATION AND SHE REQUIRED A FAX OF PT H&P, FACESHEET, ORDER FOR HOSPICE CONSULT, AND DNR ORDER AND TO HAVE FAXED TO [phone]. WILL HAVE OUR CASE MANAGEMENT CONTACT LORI AND WILL FAX THIS INFORMATION AT THIS TIME.
--- NOTE | 2016-09-20 13:23 | NUR ---
1933 CM received telephone call from primary nurse, Vicki. Patient's daughter has called and would like her father transferred to inpatient hospice at [facility] in [place], [place]. CM instructed the primary nurse to call the nursing superviosr at [facility] to ascertain if service was available. CM was on another nursing unit seeing patients, it would be approximately 20 minutes.
--- NOTE | 2016-09-20 14:38 | NUR ---
SMALL FORMED BOWEL MOVEMENT NOTED AT THIS TIME. [facility]EREKET CARE AND [facility]ANS[facility] CARE PROVIDED AT THIS TIME VIA TOTAL ASSIST. NO ACUTE DISTRESS NOTED. PT STILL CONFUSED REORIENTATION PROVIDED. NOTED AT THIS TIME. LEFT LEG APPEAR MORE RED AND WARMER TO TOUCH THAN RIGHT LEG THIS IS IN COMPARISON TO EARLIER THIS SHIFT THE LEFT LEG APPEARS MORE RED AND MORE CORPORATE INVESTIGATOR COMPARISON. PAGED DR LLOYD TO NOTIFY. WAITING FOR CALLBACK. ALSO AT THIS TIME, PT MOVED TO A DIFFERENT BED PER SOLDERER PRODUCTION LINE JUDGEMENT. NO ACUTE DISTRESS NOTED. WILL CONTINUE PLAN OF CARE.
--- NOTE | 2016-09-20 14:47 | NUR ---
SPOKE WITH DR LLOYD IN RELATION TO PT LEFT LEG BECOMING MORE RED AND MORE WARM, NO NEW ORDERS NOTED.
--- NOTE | 2016-09-20 15:27 | NUR ---
4929 Primary nurse had faxed face sheet, DNR order and history / physical to [facility] major case detective, Bonita, at [phone]. Contact phone number [phone]. [facility] hospital contact phone number is [phone]. 1300 Received telephone call from pt's daughter, Richelle Laguna, that the hospice beds at [facility] are for respite only. She selected [facility] in [place], [place]. CM advised nursing printing supervisor, Lemuel. He will discuss w/ hospital tools administrator vocational nurse. 1440 TC to nursing printing supervisor, Lemuel, regarding decision. He states [place] [place] vocational nurse, Jennifer, approved transfer. TC to [facility], . Spoke w/ Autumn. Faxed information for review by vocational nurse nurse. DR Laird signed [facility] & ambulance transfer PCS form. Chart copy done. Awaiting CB from [facility].
--- NOTE | 2016-09-20 16:51 | NUR ---
UP IN BED AWAKE AT THIS TIME. NO ACUTE DISTRESS NOTED. PT HAS BEEN REFUSING ANY PO INTAKE, PT HAS RECENTLY ACCEPTED TO INTAKE WATER, 12OML NOTED AND A FEW BITES OF APPLESAUCE THEN STATES HE IS NOW FULL AND DOES NOT WANT ANY MORE. WILL CONTINUE TO ENCOURAGE PO INTAKE WITH FLUIDS AND FOOD/SNACKS. NO ACUTE DISTRESS NOTED. WILL CONTINUE PLAN OF CARE.
--- NOTE | 2016-09-20 18:27 | NUR ---
DAUGHTER AT BEDSIDE. NO QUESTIONS OR CONCERNS NOTED. NO ACUTE DISTRESS NOTED. WILL CONTINUE PLAN OF CARE.
--- NOTE | 2016-09-20 19:00 | NUR ---
1900: Pt's daughter here at bedside. Update provided. Reviewed plan of care. Family is requesting/awaiting Hospice admission and transfer to [facility] which is closer to home.
--- NOTE | 2016-09-20 20:00 | NUR ---
2000: Pt resting with eyes closed. Pt opens to verbal. Pt is not oriented to place or time. Pt asks nurse to "finish him off." Attempted to reorient pt verbally. Pt asks "where am I now?" Pt also states that he is "tired" and wants "to stop all this." Pt grimmaces with movement. Pt remains on CM showing SR with occasional PVCs 70's with SBP 110. Dobutrex and Amiodarone remain off at this time.
[2016-09-21] VITALS (16 sets, daily range): BP systolic 83–123; BP diastolic 51–70
--- NOTE | 2016-09-21 | NUR ---
0000: Pt requests water. Pt had some trouble beginning/using straw, but once assisted was able to swallow without difficulty.
--- NOTE | 2016-09-21 04:00 | NUR ---
0400: Pt with x1 semi formed stool. Pt bath and linen change done at this time. Pt remains confused, but conversive and pleasent. Pt rambles, but does answer most questions. Pt remains SR on CM 60-70bpm with occasional PVCs seen. No change in vascular assessment.
[2016-09-21 04:01] LABS: BASOPHILS 0.1 % (0.0-2.0); EOSINOPHILS 0 % (0-7); HEMATOCRIT 39.2 % (42.0-54.0); HEMOGLOBIN 13.1 g/dL (13.5-17.5); IMMATURE GRANULOCYTES 1.8 % (0-5); LYMPHOCYTES 6.1 % (15-50); MCH 29.1 pg (26.0-34.0); MCHC 33.4 g/dL (31.0-37.0); MCV 87.1 fL (80.0-100.0); MEAN PLATELET VOLUME 10.5 fL (7.4-10.4); MONOCYTES 4.8 % (2-11); NEUTROPHILS 87.2 % (40-80); RDW 18.3 % (11.5-14.5); WBC 6.9 10x3/uL (4.8-10.8)
[2016-09-21 04:05] LABS: PROTIME 47.9 SECONDS (11.6-15.0)
[2016-09-21 04:06] LABS: APTT 65.7 SECONDS (22.8-39.4)
[2016-09-21 04:10] LABS: PLATELET COUNT 82 10x3/uL (130-400)
[2016-09-21 04:17] LABS: INR 5.08 (0.85-1.17)
[2016-09-21 04:29] LABS: ALBUMIN 2.2 g/dL (3.4-5.0); BILIRUBIN - TOTAL 1.41 mg/dL (0.2-1.3); CALCIUM 7.8 mg/dL (8.5-10.1); CARBON DIOXIDE 22.9 mmol/L (21.0-32.0); POTASSIUM - SERUM 4.9 mmol/L (3.5-5.1); PROTEIN - SERUM 6.1 g/dL (6.4-8.2)
[2016-09-21 04:31] LABS: CREATININE - SERUM 5.8 mg/dL (0.6-1.3)
--- NOTE | 2016-09-21 08:30 | NUR ---
UP IN BED AWAKE AT THIS TIME. NO ACUTE DISTRESS NOTED. PT APPEARS MORE ALERT THIS MORNING. STILL COME INTERMITTENT CONFUSION. PT ATE 75% OF BREAKFAST WITH ASSIST FROM THIS NURSE. AND PT DRANK 240ML WATER. ALSO NOTED AT THIS TIME PT COMPLAINT OF PAIN TO BILATERAL LEGS AND LEFT HAND. RENAL CASING BLOWER ORDERED PRN MED FOR PAIN. PT EXPERIENCING JERKING MOVEMENT TO EXTREMITIES WHICH AFFECTS HIS ABILITY TO CONTROL EXTREMITIES FOR ACTIVITIES SUCH GIVING SELF A DRINK OF WATER. WILL CONTINUE PLAN OF CARE.
--- NOTE | 2016-09-21 10:20 | NUR ---
DAUGHTER AT BEDSIDE SIGNING PT CONSENTS FOR DISCHARGE AND THEN TRANSFER TO [facility]. NO QUESTIONS NOTED. WILL CONTINUE PLAN OF CARE.
--- NOTE | 2016-09-21 11:13 | NUR ---
CALLED REPORT TO TINY VELÁSQUEZ RN, CHPN AT THIS TIME AT [facility] IN [place], [place]. NOTED RECIEVING PHYSICIAN IS PEGGY QUICK PT TO GO TO ROOM 4B. AT THIS TIME PT DAUGHTER, ROSSY, REQUESTS FOR STAFF TO WAIT FOR TRANSFER UNTIL SHE RETURNS FROM [facility] [place]. WILL WAIT TO CALL ANBULANCE TO PICK PT UP FOR WHEN SHE RETURNS. ALSO AT THIS TIME WE HAVE RECIEVED AND RESENT CONSENT PAPERWORK VIA FAX TO TINY AT [facility]. NO ACUTE DISTRESS NOTED. WILL CONTINUE PLAN OF CARE.
--- NOTE | 2016-09-21 12:55 | NUR ---
CALLED AMBULANCE FOR PT TRANSPORT TO HOSPICE IN [place]. SPOKE WITH JOSEPH. NOTED WILL BE HERE IN ABOUT AN HOUR. PT DAUGHTER NOTIFIED. WILL CONTINUE PLAN OF CARE.
--- NOTE | 2016-09-21 13:19 | NUR ---
CONTINENT BOWEL MOVEMENT NOTED AT THIS TIME. CLEANED UP VIA MODERATE ASSIST. NO ACUTE DISTRESS NOTED AT THIS TIME. WILL CONTINUE PLAN OF CARE.
--- NOTE | 2016-09-21 14:33 | NUR ---
UP IN BED AWAKE AT THIS TIME. NO ACUTE DISTRESS NOTED. DAUGHTER AT BEDSIDE. WAITING TO BE PICKED UP BY AMBULANCE FOR TRANSPORTATION. WILL CONTINUE PLAN OF CARE.
--- NOTE | 2016-09-21 15:04 | NUR ---
PT DC AT THIS TIME VIA AMBULANCE. FAMILY IS AWARE. LEFT WITH ALL DISCHARGE PAPERWORK. NO ACUTE DISTRESS NOTED. NO FURTHER ACTIONS.
--- NOTE | 2016-09-21 23:09 | NUR ---
[facility] did not have an inpatient unit only respite. CM spoke with the daughter. Referral for [facility]. Spoke with Ce. Faxed referral. Patient was deemed appropriate for inpatient hospice care at [facility]. Accepting MD DR Pascual Escalona. ROXANNE spoke w/ Ce at facility this am. Paperwork was faxed to be signed by the daughter. Primary nurse and cm spoke with dtr. Signatures were obtained and faxed back to [facility]. Patient's chart updated. Copy of POA paperwork placed in transfer envelope. Original Hospice legals placed in envelope. Copy to patient's chart. TC to [facility]. ROXANNE spoke w/ JT to plan for out of town trip to [place], [place] [address] [facility] [place]. Contact phone number [phone]. Report called by primary nurse. All paperwork completed/ [facility]/ PCS/ Nursing Discharge Form. Patient discharged to [facility] In Patient Unit via ambulance.
--- NOTE | 2016-09-26 08:46 | EC ---
PATIENT:JOSELIN VÁZQUEZ DATE OF SERVICE: 09/14/16 SEX: M MEDICAL RECORD: [id number] DATE OF : 44 LOCATION:[facility] AGE OF PATIENT: 75 ADMISSION DATE: 09/14/16 REFERRING PHYSICIAN: INTERPRETING PHYSICIAN: LAILA GAONA MD ECHOCARDIOGRAM REPORT ECHO CHARGES 4 ECHO COMPLETE CLINICAL DIAGNOSIS: HYPOTENSION ECHOCARDIOGRAPHIC MEASUREMENTS (adult normal given) AC root (d.<3.7cm) 3.8 LV Septum d (<1.2 cm> 1.4 Valve Excursion 2.1 LV Septum (systole) 1.5 Left Atria (s.<4.0cm> 3.6 LVPW d(<1.2cm) 1.2 RV (d.<2.3cm) 3.3 LVPW (sytole) 1.7 LV diastole(<5.6CM) 6.5 MV E-F(>70mm/sec) LV systole 5.2 LVOT Diameter 2.1 MV exc.(>10mm) Est.ejection fraction (50-75%) Pericardial Effusion N DOPPLER: LVIT A E 82.0 LA RVSP 28.4 LVOT 98.0 AOP1/2T Asc. Ao 114 RVOT 38.0 RA PA 88.0 AV Gradient Peak 5.2 AV Mean 3.0 AV Area 2.3 MV Gradient Peak 4.3 MV Mean 1.7 MV Area COMMENTS: Boatbuilder Supervisor: Dionisio WEBSTEROE Oracle Database Analyst:Dionisio Gaona TAPE# PACS DATE OF SERVICE: 09/15/2016 Echocardiogram FINDINGS: 1. Left ventricular chamber size is dilated. Left ventricular systolic function is markedly reduced. Overall ejection fraction is 20%. 2. Left atrium is within normal limits at 3.6 cm. Right atrium and right ventricular chamber sizes are mildly dilated. 3. Valvular structures have normal structure and motion. ECHOCARDIOGRAM REPORT [id number] JOSELIN VÁZQUEZ 4. Doppler interrogation reveals moderate mitral regurgitation, moderate to severe tricuspid regurgitation, no other valvular insufficiency or stenosis. Pulmonary systolic pressure is normal estimated 28 mmHg. 5. No evidence of pericardial effusion or left ventricular thrombus. TRANSINT:[id number] Voice Confirmation ID: [id number] DOCUMENT ID: [id number] LAILA GAONA MD at 0858 CC: [id number] DICTATION DATE: 09/16/16 1037 SURFACE SUPERVISOR: 09/16/16 1719 DIS IN 09/21/16 [facility] [address] [place] [id number]
--- NOTE | 2016-10-12 13:31 | DS ---
PATIENT:JOSELIN VÁZQUEZ :44 MEDICAL RECORD: [id number] DISCHARGE SUMMARY ADMISSION DATE: 09/14/16 DISCHARGE DATE: 09/21/16 ADMISSION DATE: 09/14/2016 DISCHARGE DATE: 09/21/2016 DISCHARGE DIAGNOSES: Hypotension, end-stage renal disease, left arm ischemia, cellulitis, metabolic encephalopathy, hypothyroidism, atrial fibrillation, thrombocytopenia, hyperkalemia, anemia, and debility. CONSULT: Dr. Gaona with cardiology, Dr. Suazo with general surgery, Dr. Moyer with pulmonology, speech therapy. TESTS AND PROCEDURES: On 09/16/2016, abdomen CTA, minimal lower extremity artery disease, left upper arm AV fistula appears patent, small left pleural effusion, mild cardiomegaly. On 09/16/2016, left arm CTA, left arm arterial system patent to the elbow and AV fistula of the left arm patent. On 09/14/2016, echocardiogram, EF 20%. Valvular structures normal, moderate MR, moderate to severe TR, pulmonary pressures normal. No evidence of pericardial effusion or thrombus. HOSPITAL COURSE: The patient is a 75-year-old male, who was admitted with hypotension and ischemic right hand and hyperkalemic. He was admitted to the ICU. Dr. Suazo was consulted for the ischemic right hand for possible steal syndrome. A CTA of the arm showed patent arteries of the arm. He was on Coumadin. He was started on IV antibiotics for Gram-positive organisms, which were on the blood culture drawn in [place]. Cardiology was consulted for atrial fibrillation with RVR. He was started on a Cordarone drip. Dr. Moyer with pulmonology was consulted and agreed with antibiotics for his ischemic arm as well as cellulitis of the lower extremities. For the patient's hypotension, he was started on Levophed drip, which was slowly weaned off. The patient was also very confused during this hospitalization and due to his unstable vital signs, Dr. Suazo plans on holding off on surgery to shut down the AV fistula. After he was weaned off the Levophed drip, he was on a dobutamine drip, barely keeping a systolic in the 90s. His INR then quickly increased to 11, although Coumadin was on hold for several days. It was thought that he was developing DIC. He did tolerate hemodialysis and his INR slowly started decreasing. He received 2 units of FFP and platelets were 68. The patient remains lethargic and unstable. The family came to visit and spoke with multiple physicians and agreed to send the patient to hospice in [place]. He was then transferred to hospice on 09/21/2016. DISCHARGE MEDICATIONS: All current medications discontinued. When the patient arrives to hospice, they will decide which medications the patient needs at that time. TRANSINT:[id number] Voice Confirmation ID: [id number] DOCUMENT ID: [id number] Dictated By: LEN REZA I have interviewed/examined the above patient and agree with these documented findings. DISCHARGE SUMMARY REPORT [id number] JOSELIN VÁZQUEZ, PRADEEP ZARATE at 1331 at 1658 CC: [id number] DICTATION DATE: 10/10/16 1302 MARINE MAMMAL TRAINER: 10/11/16 0150 DIS IN 09/21/16 [facility] [address] [place] [address]
== END 2016-09-21 15:08 | disposition hospice, inpatient (51) | DRG 871 ==
LOC: D.MS 16:36 → D.ICU 21:45
PROVIDERS: Internal Medicine; Internal Medicine Pulmonary Disease; ADMIT Internal Medicine Nephrology
PROC: 5A1D60Z (ICD-10-PCS; 2016-09-15)
PROC: 0T9B70Z Drainage of Bladder with Drainage Device, Via Natural or Artificial Opening (ICD-10-PCS; principal; 2016-09-17)
DX: A41.9 Sepsis, unspecified organism (principal); N18.6 End stage renal disease; D65 Disseminated intravascular coagulation [defibrination syndrome]; I50.23 Acute on chronic systolic (congestive) heart failure; G93.41 Metabolic encephalopathy; J98.11 Atelectasis; E27.40 Unspecified adrenocortical insufficiency; I42.9 Cardiomyopathy, unspecified; G72.81 Critical illness myopathy; E87.1 Hypo-osmolality and hyponatremia; I13.2 Hypertensive heart and chronic kidney disease with heart failure and with stage 5 chronic kidney disease, or end stage renal disease; E44.0 Moderate protein-calorie malnutrition; L03.116 Cellulitis of left lower limb; L03.115 Cellulitis of right lower limb; T82.898A Other specified complication of vascular prosthetic devices, implants and grafts, initial encounter; I99.8 Other disorder of circulatory system; Z66 Do not resuscitate; I07.1 Rheumatic tricuspid insufficiency; Z79.01 Long term (current) use of anticoagulants; I48.91 Unspecified atrial fibrillation; D63.1 Anemia in chronic kidney disease; E03.9 Hypothyroidism, unspecified; E87.5 Hyperkalemia; I70.298 Other atherosclerosis of native arteries of extremities, other extremity; M17.9 Osteoarthritis of knee, unspecified; M19.019 Primary osteoarthritis, unspecified shoulder; Z99.2 Dependence on renal dialysis; Z68.28 Body mass index [BMI] 28.0-28.9, adult; Z87.891 Personal history of nicotine dependence; Y83.8 Other surgical procedures as the cause of abnormal reaction of the patient, or of later complication, without mention of misadventure at the time of the procedure